=== PATIENT | male | born 1980 | race Caucasian/White ===

== ENCOUNTER 2019-03-04 21:05 | Emergency (ER) | payer OTHER, BC ==
[2019-03-04] MEDS ORDERED: Ibuprofen 600 MG Tab PO ONE (21:56)
[2019-03-04] MEDS ORDERED: Bacitracin Oint 1 GM U/D Packet TOP ONE (21:56)
--- NOTE | 2019-03-04 22:00 | EDM.PDOC ---
ED HPI GENERAL MEDICAL PROBLEM - General Chief Complaint: Lower Extremity Injury/Pain Stated Complaint: RIGHT FOOT PAIN Time Seen by Provider: 03/04/19 21:56 Source of Information: Reports: Patient History Limitations: Reports: No Limitations - History of Present Illness INITIAL COMMENTS - FREE TEXT/NARRATIVE: Dropped an 80 lb grate onto right foot @1630 today. Complains of pain to the dorsum of the foot. Did not take any medication for pain. Denies numbness or tingling. Onset: Today Onset Date: 03/04/19 Onset Time: 16:30 Location: Reports: Lower Extremity, Right Quality: Reports: Ache Severity: Moderate Worsens with: Reports: Movement Associated Symptoms: Reports: No Other Symptoms - Related Data Allergies Allergy/AdvReac Type Severity Reaction Status Date / Time codeine Allergy Hives Verified 03/04/19 21:40 Penicillins Allergy Hives Verified 03/04/19 21:40 Home Meds: Home Meds NK [No Known Home Meds] 03/04/19 [History] Past Medical History - Past Health History Medical/Surgical History: Denies Medical/Surgical History Social & Family History - Tobacco Use Smoking Status *Q: Current Every Day Smoker Tobacco Use Within Last Twelve Months: Cigarettes - Alcohol Use Alcohol Use History: No - Recreational Drug Use Recreational Drug Use: No Review of Systems - Review of Systems Review Of Systems: ROS reveals no pertinent complaints other than HPI. ED EXAM, GENERAL - Physical Exam Exam: See Below Exam Limited By: No Limitations General Appearance: Alert, WD/WN, No Apparent Distress Ears: Normal External Exam Throat/Mouth: No Airway Compromise Head: Atraumatic, Normocephalic Neck: Full Range of Motion Respiratory/Chest: No Respiratory Distress Peripheral Pulses: 2+: Dorsalis Pedis (R) Extremities: Other (abrasion and swelling to dorsum of right foot overlying the 1st metatarsal, no deformities) Neurological: Alert, Normal Cognition, No Motor/Sensory Deficits Skin Exam: Warm, Dry, Other (Abrasion as above, otherwise intact.) Course - Vital Signs Last Recorded V/S: Last Vital Signs Temp 37.2 C 03/04/19 21:15 Pulse 71 03/04/19 21:15 Resp 17 03/04/19 21:15 BP 127/76 03/04/19 21:15 Pulse Ox 98 03/04/19 21:15 - Orders/Labs/Meds Orders: Active Orders 24 hr Category Date Time Status Foot Comp Min 3V Rt [CR] Stat Exams 03/04/19 21:07 Taken Meds: Medications Discontinued Medications Generic Name Dose Route Start Last Admin Trade Name Eileen PRN Reason Stop Dose Admin Bacitracin 1 dose 03/04/19 21:56 Bacitracin Oint 1 Gm TOP 03/04/19 21:57 ONETIME ONE Ibuprofen 600 mg 03/04/19 21:56 Motrin PO 03/04/19 21:57 ONETIME ONE - Radiology Interpretation Free Text/Narrative:: Right Foot XR: No fracture or subluxation. Mild soft tissue swelling along dorsum of foot. Linear foreign body plantar soft tissues at the level of the head of the 5th metatarsal. Remote deformity of the midshaft of the right 5th metatarsal. Departure - Departure Time of Disposition: 22:07 Disposition: Home, Self-Care 01 Condition: Good Clinical Impression: Abrasion, foot w/o infection Contusion, foot Qualifiers: Encounter type: initial encounter Laterality: right Qualified Code(s): S90.31XA - Contusion of right foot, initial encounter - Discharge Information *PRESCRIPTION DRUG MONITORING PROGRAM REVIEWED*: No *COPY OF PRESCRIPTION DRUG MONITORING REPORT IN PATIENT MANUEL: Not Applicable Instructions: Foot Contusion, [id number], Abrasion, Crutch Use, Adult, Easy- to-Read Referrals: PCP,None [Primary Care Provider] - Forms: ED Department Discharge Additional Instructions: Take OTC Ibuprofen 600 mg every 6 hours as needed for pain. Ice the area affected. Elevate. Weight bear as tolerated. Apply Bacitracin ointment daily until abrasion scabs over. Follow up in 1 week if symptoms don't resolve. - My Orders Last 24 Hours: My Active Orders 03/04/19 21:07 Foot Comp Min 3V Rt [CR] Stat - Assessment/Plan Last 24 Hours: My Active Orders 03/04/19 21:07 Foot Comp Min 3V Rt [CR] Stat
== END 2019-03-04 22:14 | disposition home or self-care (01) ==
LOC: FB.ED 21:05
DX: S90.31XA Contusion of right foot, initial encounter (principal); F17.210 Nicotine dependence, cigarettes, uncomplicated; Z88.0 Allergy status to penicillin; Z88.5 Allergy status to narcotic agent; W20.8XXA Other cause of strike by thrown, projected or falling object, initial encounter
CPT/HCPCS: 73630-RT; 99283-25; A9270-GY